=== PATIENT | male | born 1960 | race Caucasian/White ===

== ENCOUNTER 2016-06-16 20:09 | Inpatient (IN) | payer OTHER ==
[~2016-06-16] VITALS: Ht 162.6 cm; Wt 72.6 kg
[2016-06-16 21:00] VITALS: BP 143/90
[2016-06-16 21:05] VITALS: BP 143/90
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
[2016-06-16] MEDS ORDERED: ACETAMINOPHEN 325 MG TABLET PO PRN (21:30)
[2016-06-16] MEDS ORDERED: TEMAZEPAM 7.5 MG CAPSULE PO PRN (21:30)
[2016-06-16] MEDS ORDERED: MAG HYDROX/AL HYDROX/SIMETH 30 ML UDC PO PRN (21:30)
[2016-06-16] MEDS ORDERED: MAGNESIUM HYDROXIDE 30 ML UDC PO PRN (21:30)
[2016-06-16] MEDS ORDERED: ATEN25TA PO (22:55)
[2016-06-16] MEDS ORDERED: VENL75CA56 PO (22:56)
[2016-06-16] MEDS ORDERED: ARIP10TA15 PO (22:56)
[2016-06-16] MEDS ORDERED: CHLO25CA22 PO (22:58)
[2016-06-16] MEDS ORDERED: CLON0.1T PO (23:05)
[2016-06-16] MEDS ORDERED: CLONIDINE HCL 0.1 MG TABLET PO PRN (23:30)
[2016-06-17 07:19] LABS: BASOPHILS % (AUTO) 0.8 % (0.0-2.0); EOSINOPHILS # (AUTO) 0.2 /CMM (0.0-0.7); EOSINOPHILS % (AUTO) 3.1 % (0.0-6.0); HEMATOCRIT 48 % (39-51); HEMOGLOBIN 16.2 g/dL (13.5-17.5); LYMPHOCYTES # (AUTO) 1.8 /CMM (0.8-4.8); MEAN CORPUSCULAR HEMOGLOBIN 31 PG (26.0-33.0); MEAN CORPUSCULAR HGB CONC 34 g/dl (31.0-36.0); MEAN CORPUSCULAR VOLUME 91 fL (80-96); MONOCYTES # (AUTO) 0.4 /CMM (0.1-1.30); MONOCYTES % (AUTO) 6.8 % (2.0-12.0); NEUTROPHILS # (AUTO) 3.2 /CMM (1.8-8.9); NEUTROPHILS % (AUTO) 57.3 % (43.0-81.0); PLATELET COUNT (AUTO) 283 /CMM (150-450); RDW COEFFICIENT OF VARIATION 13.1 (11.5-15.0); WHITE BLOOD COUNT (AUTO) 5.5 K/uL (4.3-11.0)
[2016-06-17 07:22] LABS: ALBUMIN 3.8 g/dL (3.4-5.0); BILIRUBIN,TOTAL 0.6 mg/dL (0.2-1.0); CALCIUM, SERUM 8.6 mg/dL (8.5-10.1); CHOLESTEROL 152 mg/dL (<200); HDL CHOLESTEROL 35 mg/dL (40-60); LDL 107 mg/dL (0-99); POTASSIUM 4.5 mmol/L (3.5-5.1); TOTAL PROTEIN, SERUM 6.7 g/dL (6.4-8.2); TRIGLYCERIDES 77 mg/dL (30-150)
[2016-06-17 08:30] VITALS: BP 110/66
[2016-06-17] MEDS: ATENOLOL 25 MG TABLET PO SCH ×2 (08:56→18:02)
[2016-06-17] MEDS: LORAZEPAM 0.5 MG TABLET PO PRN ×2 (08:56→18:01)
--- NOTE | 2016-06-17 08:56 | NUR ---
administered ativan 0.5 mg po prn for anxiety, v/s take bp-110/66, p-92, continued monitoring.
--- NOTE | 2016-06-17 15:38 | NUR ---
THIS CT IS ON HOLD. RN WILL CALL.
[2016-06-17 16:02] VITALS: BP 127/81
--- NOTE | 2016-06-17 18:01 | NUR ---
ADMINISTERED ATIVAN 0.5 MG PO PRN FOR ANXIETY, RESTLESSNESS, V/S STABLE BP-127/81, P-85, CONTINUED MONITORING.
[2016-06-17] MEDS: ARIPIPRAZOLE 5 MG TABLET PO SCH (18:18)
--- NOTE | 2016-06-17 19:30 | NUR ---
PS RN NOTE, RECEIVED PATIENT AWAKE AND IN BED, NO S/S OR COMPLAINTS OF PAIN AT THIS TIME. PATIENT IS DISPLAYING NO S/S OF APPARENT DISTRESS AT THIS TIME. PATIENT BREATHING IS UNLABORED WITH EQUAL RISE AND FALL OF THE CHEST. PATIENT IS ALERT AND ORIENTED X 3 ON ROOM AIR WITH A SPO2 98%. PATIENT COMPLIANT WITH MEDICATIONS, ANXIOUS, DISORGANIZED, COOPERATIVE, AND NEEDS REORIENTATION. PATIENT DENIES SUICIDE AND HOMICIDAL IDEATIONS AT THIS TIME. PATIENT ASSISTED WITH TURNING AND REPOSITIONING Q2HR AND PRN FOR COMFORT AND CIRCULATION. PATIENT HAS NO NEEDS AT THIS TIME. PATIENT REFUSED SKIN ASSESSMENT TODAY. PATIENT EDUCATED ON THE USE OF THE CALL FRANCES. PATIENT BED SIDE RAILS UP X2 FOR SAFETY, BED IS LOCKED AND LOW WILL CONTINUE TO MONITOR AND MAINTAIN SAFETY.
[2016-06-17 19:57] VITALS: BP 130/72
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
[2016-06-18] MEDS: LORAZEPAM 0.5 MG TABLET PO PRN (05:50)
--- NOTE | 2016-06-18 05:50 | NUR ---
GPS RN NOTE, PATIENT HAS A COMPLAINT OF FEELING ANXIOUS AND WOULD LIKE MEDICATION TO HELP CALM HIM DOWN. PATIENT VITAL SIGNS ARE STABLE. GAVE ATIVAN 0.5MG PO Q6HR PRN ORDERED. WILL REASSESS FOR ANXIETY AND I WILL CONTINUE TO MONITOR THIS PATIENT.
[2016-06-18 08:00] VITALS: BP 131/74
[2016-06-18] MEDS: ARIPIPRAZOLE 5 MG TABLET PO SCH ×2 (08:07→17:34)
[2016-06-18] MEDS: ATENOLOL 25 MG TABLET PO SCH ×2 (08:07→17:35)
[2016-06-18 16:00] VITALS: BP 127/67
--- NOTE | 2016-06-18 19:50 | NUR ---
GPS OPENING NOTES RECEIVED Pt AWAKE, RESTING IN BED. ASKING WHEN HE WILL BE ABLE TO SPEAK WITH THE DR TOMORROW, EXPLAINED TO Pt THAT THE DOCTORS DO THEIR ROUNDS IN THE MORNING BUT THE EXACT TIME IS NOT KNOWN. NO S/S OF ACUTE DISTRESS OR SOB NOTED. Pt BREATHING IS UNLABORED WITH EQUAL RISE AND FALL OF THE CHEST. NO SIGNS OF PAIN NOTED AT THIS TIME. Pt IS A/OX3, AMBULATORY, VERBAL, ABLE TO MAKE NEEDS KNOWN. SAFETY MEASURES IN PLACE. BED LOW, LOCKED, HOB ELEVATED, & SIDE RAILS UP. WILL CONTINUE TO MONITOR Pt THROUGHOUT THE NIGHT AND MAINTAIN SAFETY.
[2016-06-18 20:12] VITALS: BP 116/49
--- NOTE | 2016-06-19 06:45 | NUR ---
RN CLOSING NOTES NO SIGNIFICANT CHANGES. NO S/S OF ACUTE DISTRESS OR SOB NOTED DURING THE NIGHT. ALL SAFETY MEASURES CARRIED OUT. ALL NEEDS MET AND ATTENDED TO. WILL ENDORSE TO DAYSHIFT RN FOR Pt's UNIQUE.
[2016-06-19] MEDS: ARIPIPRAZOLE 5 MG TABLET PO SCH ×2 (07:55→16:29)
[2016-06-19] MEDS: ATENOLOL 25 MG TABLET PO SCH ×2 (07:55→16:29)
[2016-06-19 08:00] VITALS: BP 134/85
--- NOTE | 2016-06-19 12:27 | NUR ---
Initial Discharge Plan: Patient currently lives at [facility] at [address] [address]. / . SW spoke attempted to contact patient's ex- Nubia Herrmann . However, the number was a non-working number, SW will attempt again later. SW spoke with Nish from [facility] who confirmed that patient can return upon discharge. SW will follow-up with MD and patient regarding most appropriate discharge and will help form a safe and proper discharge.
[2016-06-19 16:00] VITALS: BP 135/68
--- NOTE | 2016-06-19 19:35 | NUR ---
PATIENT IN ROOM ON BED, AWAKE AND ALERT X1-2 AND VERBALLY RESPONSIVE. RN OPENING NOTES: PATIENT IS NOTED TO BE CALM WITH MINIMAL INTERACTION. PATIENT IS NOT IN APPARENT DISTRESS AT THIS TIME, NO COMPLAINTS OF PAIN OR DISCOMFORT.WITHOUT VERBALIZATION OF ACTUAL PLANS TO HURT SELF OR OTHERS. SAFETY AND COMFORT MEASURES ENSURED; SAFETY CHECKS EVERY 15 MINS PER DEPARTMENT PROTOCOL. ANTICIPATED AND ATTENDED NEEDS. CONTINUOUSLY MONITORED FOR SAFETY AND BEHAVIOR.
[2016-06-19 19:47] VITALS: BP 115/69
[2016-06-20 07:47] LABS: APPEARANCE,URINE CLEAR (CLEAR); BILIRUBIN,URINE NEGATIVE (NEGATIVE); BLOOD, URINE TRACE-INTA Ery/uL (NEGATIVE); COLOR,URINE YELLOW (YELLOW); KETONES,URINE NEGATIVE (NEGATIVE); LEUKOCYTE ESTERASE ,URINE TRACE (NEGATIVE); NITRITE, URINE NEGATIVE (NEGATIVE); PROTEIN,URINE NEGATIVE (NEGATIVE); UGLUCOSE NEGATIVE (NEGATIVE); UROBILINOGEN,URINE 0.2 EU/dL (0.2)
[2016-06-20 07:59] LABS: ADD URINE CULTURE NO; BACTERIA,URINE Rare /HPF (None Seen); MUCUS,URINE Few /LPF (None Seen); SQUAMOUS EPITHELIAL CELL,UR Rare /HPF (None Seen)
[2016-06-20 08:00] VITALS: BP 140/83
[2016-06-20] MEDS ORDERED: VENLAFAXINE XR 150 MG CAP.SR.24H PO SCH ×2 (09:00→14:15)
[2016-06-20] MEDS: ARIPIPRAZOLE 5 MG TABLET PO SCH ×2 (09:10→17:58)
[2016-06-20] MEDS: ATENOLOL 25 MG TABLET PO SCH ×2 (09:11→17:59)
--- NOTE | 2016-06-20 09:16 | NUR ---
Psychosocial assessment was reviewed and I concur with the information provided. No changes are necessary. Brandon García, VOCATIONAL COUNSELOR [id number] Addendum: 06/20/16 at 0917 by BRANDON GARCÍA SW Amended: Links added.
[2016-06-20] MEDS ORDERED: VENLAFAXINE XR 75 MG CAP.SR.24H PO SCH (15:10)
[2016-06-20] MEDS: VENLAFAXINE XR 75 MG CAP.SR.24H PO SCH (15:19)
[2016-06-20 16:00] VITALS: BP 130/80
--- NOTE | 2016-06-20 16:47 | NUR ---
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
[2016-06-20 20:14] VITALS: BP 117/82
[2016-06-21 08:00] VITALS: BP 138/87
[2016-06-21] MEDS: ARIPIPRAZOLE 5 MG TABLET PO SCH ×2 (08:11→16:17)
[2016-06-21] MEDS: VENLAFAXINE XR 75 MG CAP.SR.24H PO SCH (08:11)
[2016-06-21] MEDS: ATENOLOL 25 MG TABLET PO SCH ×2 (08:11→16:18)
[2016-06-21] MEDS ORDERED: VENLAFAXINE XR 150 MG CAP.SR.24H PO SCH (13:31)
[2016-06-21 16:00] VITALS: BP 127/76
[2016-06-21 20:00] VITALS: BP 127/70
--- NOTE | 2016-06-21 20:02 | NUR ---
GPS/RN NOTES PT RESTING COMFORTABLY IN BED, AROUSABLE TO NAME. BREATHING EVEN AND UNLABORED. NO S/S OF SOB OR DISTRESS. NO SIGNS OF PAIN. A/OX3. BED IN LOCKED/LOW POSITION, BED ALARM ON. SIDE RAILS UPX2. WILL CONTINUE TO MONITOR
[2016-06-21 20:36] VITALS: BP 127/70
--- NOTE | 2016-06-22 06:50 | NUR ---
GPS/RN CLOSING NOTES PT ASLEEP, AROUSABLE TO NAME. BREATHING EVEN AND UNLABORED. NO S/S OF DISTRESS OR PAIN NOTED. PT SLEPT THROUGHOUT THE NIGHT WITH OCCASIONAL TRIPS TO THE BATHROOM. STEADY UPON AMBULATION ORIENTED PT PRN. SAFETY PRECAUTIONS IMPLEMENTED THROUGHOUT SHIFT. VISUAL CHECK [id number]. WILL ENDORSE TO AM SHIFT UNIQUE. Addendum: 06/22/16 at 0654 by ANTHONY RAMÍREZ RN FREQUENT VISUAL CHECKS.
[2016-06-22 08:00] VITALS: BP 131/79
[2016-06-22 08:23] VITALS: BP 131/79
[2016-06-22] MEDS: ATENOLOL 25 MG TABLET PO SCH (08:23)
[2016-06-22] MEDS: VENLAFAXINE XR 75 MG CAP.SR.24H PO SCH (08:23)
[2016-06-22] MEDS: ARIPIPRAZOLE 5 MG TABLET PO SCH (08:24)
--- NOTE | 2016-06-22 08:26 | NUR ---
PT. WITH AN ORDER TO D/C HOLD AND D/C TO [facility]. WITHOUT DISTRESS, DENIES SUICIDAL AND HOMICIDAL. TO FOLLOW UP WITH PSYCH AND MEDICAL DOCTORS.
--- NOTE | 2016-06-22 13:40 | NUR ---
GPS/RN Patient cleared for discharge to [facility] Board by Dr. Roman and Gallito Liang. all discharge paperwork completed and signed by patient, belongings returned and signed for by patient, prescriptions included in packet and explained to patient, verbalized understanding, patient denies si/hi upon discharge, left unit calm, cooperative, no distress with friend from Room and Board and VARNISH FINISHER at side.
--- NOTE | 2016-06-23 11:56 | NUR ---
Discharge Plan: Patient returned back to [facility] [place] [address] [place] [address]. / . Patient was picked up by Nish [phone] from the room and board. Patient received Rx. Patient denied S/H ideations and V/A hallucinations upon assessment. SW provided patient with the contact informations to the [facility] . Facilitated info to IDT team who are in agreement with discharge arrangement. The multidisciplinary exitcare form was done, printed, signed, and given to the patient.
== END 2016-06-22 13:40 | disposition home or self-care (01) | DRG 885 ==
LOC: GPS 20:51
PROVIDERS: ADMIT Psychiatry & Neurology Psychosomatic Medicine; ATTEND Internal Medicine
DX: F31.60 Bipolar disorder, current episode mixed, unspecified (principal); G93.40 Encephalopathy, unspecified; I10 Essential (primary) hypertension; F41.9 Anxiety disorder, unspecified; E78.5 Hyperlipidemia, unspecified; I25.2 Old myocardial infarction
CPT/HCPCS: 36415; 70450-TC; 80053-TC; 80061-TC; 81000-TC; 84443-TC; 85025-TC; 87081-TC